=== PATIENT | male | born 1985 | race Caucasian/White ===

== ENCOUNTER 2019-12-15 19:59 | Emergency (ER) | payer BC, SELFPAY ==
[2019-12-15] VITALS (11 sets, daily range): BP systolic 131–148; BP diastolic 72–86; PULSE 61–76; RESP 14–19; TEMP 36.6–36.7; O2SAT 99–100
--- NOTE | 2019-12-15 20:08 | W.ED.GENAD ---
Discharge Plan Disposition Patient Disposition: HOME Condition: Improving Discharge Details Chief Complaint: Allergic Clinical Impression: Allergic reaction to bee sting Primary Care Provider: None,None ED Provider: Denia Chowdhury Home Meds and New Rx's Prescriptions: New epinephrine 0.3 mg/0.3 mL auto-injector 0.3 mg IM ONCE Qty: 1 RF: 0 Discharge Instructions Instructions: General Allergic Reaction (ED) Additional Instructions: Follow up with primary care provider in 3-5 days. Return to ED sooner if any worsening or concerns. Increase oral fluids. Please return to the ED for any trouble breathing, worsening rash, or any concerns. You were placed on a care management list to get established with primary care provider. 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 This occurred proximately 10 minutes prior to arrival. He was stung by a [id number] to his left posterior upper arm. He is allergic to bee venom known other known drug allergies. She does have an EpiPen with him but he had not given it to himself yet. He has no stridor, no wheezes, lung sounds are clear to auscultation bilaterally. He is non-verbal at baseline. History somewhat limited due to language barrier. 2009: Med orders in place including IV, normal saline bolus, Pepcid 20 mg IV piggyback, 0.3 epi subcu, Solu-Medrol 125 mg. Patient is stable at this time. 2100: Patient re-evaluation, erythema has decreaseed, patient indicates that he feels better, breathing is eupneic no increased work of breathing. Plan is to discharge patient home call made to patient's mother, left a voicemail. Patient has remained hemodynamically stable throughout stay. HPI General Mode of arrival: ambulatory. Date/Time Provider Initiated Documentation: 12/15/19 20:05. Limitations to Documentation: language barrier and physical limitation (Deaf). Information obtained by: patient. 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 This occurred proximately 10 minutes prior to arrival. He was stung by a [id number] to his left posterior upper arm. He is allergic to bee venom known other known drug allergies. She does have an EpiPen with him but he had not given it to himself yet. He has no stridor, no wheezes, lung sounds are clear to auscultation bilaterally. He is non-verbal at baseline. History somewhat limited due to language barrier. Related Data Home Medications Medication Instructions Recorded Confirmed epinephrine 0.3 mg IM ONCE #1 each 12/15/19 Previous Rx's Medication Instructions Recorded epinephrine 0.3 mg IM ONCE #1 each 12/15/19 Allergies Allergy/AdvReac Type Severity Reaction Status Date / Time bee venom protein (honey bee) Allergy Unverified 12/15/19 20:12 Review of Systems All systems reviewed & are unremarkable except as noted in HPI and below Integumentary/Breasts Skin/Breast: Reports erythema and Reports wounds ( puncture wound noted consistent with bee or wasp sting) FORMERLY [facility], [facility] Social History Smoking/Tobacco Use Status: Never Alcohol Intake: never Drug use: Never Substance use type: does not use Do you feel safe at home: Yes Exam Narrative Exam Narrative: Constitutional: Alert and oriented x3. Appears stated age. Normal body habitus. Head: Normocephalic, no trauma. Eyes: Pupils PERRLA, Red reflex noted, EOM's intact. Eyelids symmetrical without lesions, discharge, or swelling. ENT: Bilateral TM's WNL, External ear normal to inspection, no mastoid TTP, swelling, or erythema, Nasal turbinates WNL, no nasal discharge. Normal dentition, Posterior pharynx WNL, no exudate. Chest: RRR, Normal S1, S2, distal pulses intact. Resp: Lungs clear to auscultation bilaterally, no wheezes, rales, or rhonchi. Musculoskeletal: Normal gait, 5/5 strength to all four extremities. Skin: Left posterior upper forearm, surrounded by erythema capillary refill less than 2 sec. Neurologic: Cranial nerves II-XII intact. Alert and oriented x 3. DTR's intact. Hematologic/Lymphatic: No ecchymosis, no lymphadenopathy. Does have a stain wound noted to which extends from his axilla down to his elbow.
[2019-12-15] MEDS: methylPREDNISolone SUCC 125 MG VIAL IVP (20:18)
[2019-12-15] MEDS: FAMOTIDINE 20 MG/50 ML BAG 200 MG IVPB (20:18)
[2019-12-15] MEDS: diphenhydrAMINE 50 MG/ML VIAL 25 MG IVP (20:18)
[2019-12-15] MEDS: Normal Saline 1,000 ML 1000 ML IV (20:19)
[2019-12-15] MEDS: EPINEPHrine 0.3 MG KIT IM (22:36)
== END 2019-12-15 23:00 | disposition home or self-care (01) ==
PROVIDERS: Emergency Provider Registered Nurse Emergency
DX: T63.442 Toxic effect of venom of bees, intentional self-harm (principal); H91.3 Deaf nonspeaking, not elsewhere classified; L53.9 Erythematous condition, unspecified; Z91.030 Bee allergy status
CPT/HCPCS: 96361; 96365; 96372; 96375; 99284; J0171; J1200; J2930

== ENCOUNTER 2023-05-21 15:25 | Emergency (ER) | payer BC, SELFPAY ==
[2023-05-21 15:29] VITALS: BP 166/105; PULSE 64; RESP 18; TEMP 36.2; O2SAT 97
--- NOTE | 2023-05-21 15:45 | DI.CT_ITS ---
Exam(s) CT HEAD WO EXAM: CT HEAD WO CLINICAL HISTORY: fall on ice, head injury, LOC. TECHNIQUE: Imaging Protocol: Axial computed tomography images with coronal and sagittal reformatted images were created and reviewed COMPARISON: No exams were available for comparison FINDINGS: Ventricles and Extra axial spaces: Normal in size and morphology for the patient's age. Hemorrhage: None. Cerebral parenchyma: Normal. Midline shift: None. Brainstem/Cerebellum: Normal. Calvarium: Normal. Visualized Paranasal sinuses/Mastoids: Clear. Soft Tissues: Unremarkable. IMPRESSION: No acute intracranial process. RADIATION DOSE DELIVERED: Total DLP DATA REPOSITORY: All CT scans at this facility are submitted to the National Radiology Data Registry (NRDR) Dose Index Registry (DIR) with the [employer] (ACR). RADIATION OPTIMIZATION: All CT scans at this facility use at least one of these dose optimization te chniques: automated exposure control; mA and/or kV adjustment per patient size (includes targeted exa ms where dose is matched to clinical indication); or iterative reconstruction.
--- NOTE | 2023-05-21 15:54 | ED.GENADUL_ITS ---
Discharge Plan Disposition Patient Disposition: Home Condition: Improving Discharge Details Chief Complaint: HeadInjury Clinical Impression: Laceration of brow without complication, Head injury, Facial injury Primary Care Provider: None,None ED Provider: Ken Gallardo Home Meds and New Rx's Prescriptions: No Action epinephrine 0.3 mg/0.3 mL auto-injector 0.3 mg IM ONCE Qty: 1 0RF Rx Instructions: as a single dose Discharge Instructions Instructions: Head Injury (ED), Facial Laceration (ED) Additional Instructions: Please keep wound clean and dry. Use ibuprofen and/or acetaminophen as needed for pain. Please return to the emergency department for any worsening symptoms. Your sutures will dissolve and fall out within 7 to 10 days. Medical Decision Making 38-year-old male, deaf, presents after mechanical slip and fall on ice, sustaining head injury brief loss of consciousness with return to baseline, superficial abrasion to left zygoma, contusion to left upper lip and mucosal abrasion, 2 cm minimally gaping laceration to left brow hemostatic no foreign body. Patient is hemodynamically stable alert interactive nonfocal on neurologic examination. No evidence of thoracoabdominal trauma or spinal trauma. Likely contusion and concussion from head injury must also consider skull fracture versus intracerebral hemorrhage given loss of consciousness, will obtain CT head, patient is up-to-date with tetanus vaccination, will apply topical anesthetic to left brow, will clean wounds, brow wound will need primary closure. Disposition pending reassessment imaging results and laceration repair 16: 57 CT head unremarkable for intracranial process. Wound cleaned and closed with 5-0 Vicryl 3 times simple interrupted Home care instructions and return precautions given. HPI General Date/Time Provider Initiated Documentation: 05/21/23 15:39 . HPI Narrative: 38-year-old male presents after slip and fall on ice, hit left brow and face, sustaining abrasion to face and laceration to left brow as well as contusion to upper lip. Brief loss of consciousness, back to baseline currently, no nausea no vomiting. Patient is deaf, history and physical assisted by patient's roommate who reads lips and is fluent in [place] sign language Related Data Home Medications Medication Instructions Recorded Confirmed epinephrine 0.3 mg/0.3 mL 0.3 mg (0.3 mL) IM ONCE bee 12/15/19 05/21/23 injection, auto-injector allergy #1 ea Previous Rx's Medication Instructions Recorded epinephrine 0.3 mg/0.3 mL 0.3 mg (0.3 mL) IM ONCE bee 12/15/19 injection, auto-injector allergy #1 ea Allergies Allergy/AdvReac Type Severity Reaction Status Date / Time bee venom protein (honey bee) Allergy Unverified 12/15/19 20:12 General Stated Complaint: HeadInjury DORIAN: 3 Review of Systems Narrative: Review of Systems Constitutional: negative Eyes: negative ENT: Facial abrasion, brow laceration lip contusion Cardiovascular: negative Respiratory: negative Gastrointestinal: negative : negative Musculoskeletal: negative Skin: negative Neurologic: Loss of consciousness, head injury Psych: negative PFSH All Active Problems (Updated 05/21/23 @ 16:58 by Ken Gallardo MD) Facial injury (Acute) Head injury (Acute) Laceration of brow without complication (Acute) Social History Smoking/Tobacco Use Status: Never Smoking risk assessment performed?: Yes Alcohol Intake: never Drug use: Never Substance use type: does not use Housing: house Do you feel safe at home: Yes Exam Narrative Exam Narrative: Physical Examination General: alert, awake, cooperative, resting comfortably, no acute distress HEENT: normocephalic, superficial abrasion to left zygoma, 2 cm minimally gaping laceration to left brow hemostatic no foreign body, superficial contusion to external lip left upper with minimal internal mucosal abrasion Neck: supple, trachea midline; full ROM Chest: normal to inspection Respiratory: normal respiratory effort Skin: See HEENT Neuro: Alert, interactive moving all extremities ambulatory without assistance, no ataxia Extremities: No signs of trauma Psych: Appropriate mood and affect Course Vital Signs Vital signs: Vital Signs Temperature 36.2 C L 05/21/23 15:29 Pulse 64 05/21/23 15:29 Respiratory Rate 18 05/21/23 15:29 Blood Pressure 166/105 H 05/21/23 15:29 Pulse Oximetry 97 05/21/23 15:29 Temperature 36.2 C L 05/21/23 15:29 Temperature Source Oral 05/21/23 15:29 Pulse 64 05/21/23 15:29 Respiratory Rate 18 05/21/23 15:29 Respiratory Effort Normal, Non-Labored 05/21/23 15:45 Respiratory Depth Normal 05/21/23 15:45 Respiratory Pattern Normal 05/21/23 15:45 Blood Pressure 166/105 H 05/21/23 15:29 Blood Pressure Position Sitting 05/21/23 15:29 Pulse Oximetry 97 05/21/23 15:29 Oxygen Delivery Method Room Air 05/21/23 15:29 Oxygen Flow Rate 0 05/21/23 15:29 Procedures Laceration Laceration 1: Site: face Side (If applicable): left Size (cm): 2 Description: linear Depth: simple, single layer Local Anesthetic: other anesthetic (LET gel) Pre-repair: wound explored and irrigated extensively Skin layer closed with: vicryl Size (cm): 5-0 Number of sutures: 3 Technique: simple, interrupted
[2023-05-21] MEDS: Acetaminophen 325 MG TAB 650 MG PO (15:56)
[2023-05-21] MEDS: Lidocaine/Epinephri/Tetracaine Topical Gel 3 ML TP (15:58)
--- NOTE | 2023-05-21 16:42 | DI.VRAD_ITS ---
PROCEDURE INFORMATION: Exam: CT Head Without Contrast Exam date and time: 05/21/2023 4:06 PM Age: 38 years old Clinical indication: Injury or trauma; Other: Fall on ice, head injury, loc; Blunt trauma (contusions or hematomas) TECHNIQUE: Imaging protocol: Computed tomography of the head without contrast. COMPARISON: No relevant prior studies available. FINDINGS: Brain: Normal. No hemorrhage. Unremarkable white matter. No mass effect. Cerebral ventricles: No ventriculomegaly. Paranasal sinuses: Visualized sinuses are unremarkable. No fluid levels. Mastoid air cells: Visualized mastoid air cells are well aerated. Bones/joints: Unremarkable. No acute fracture. Soft tissues: Unremarkable. IMPRESSION: No acute intracranial abnormality. Dictated and Authenticated by: Ken Gonzaelz MD. Ordering:MAGDALENO Rogers MD
[2023-05-21 16:57] VITALS: BP 174/100; PULSE 60; RESP 14; O2SAT 100
== END 2023-05-21 17:21 | disposition home or self-care (01) ==
PROVIDERS: Emergency Provider Emergency Medicine
DX: S01.111A Laceration without foreign body of right eyelid and periocular area, initial encounter (principal); W00.0XXA Fall on same level due to ice and snow, initial encounter
CPT/HCPCS: 12011; 99284; 70450